=== PATIENT | male | born 1940 | race Caucasian/White ===

== ENCOUNTER → 2019-03-19 | Outpatient (CLI) | payer OTHER ==
[~2019-03-19] MED LIST: ANDROGEL2.5 GM TOP; ARIMIDEX1 MG PO; ASA81BEC PO; CALCIUM 500 +1 EAC1 PO; CELEXA 20 MG TA20 MG PO; FISH OIL 1,001000 M3 PO; GLUCOSAMINE CH1 EA10 PO; MAGNESIUM250 M1 PO; MULTIVITAMINS PO; NABUMETONE 500500 M2 PO; NEURONTIN 300M300 M2 PO; OCUVITE TABLET1 EAC1 PO; SAW PALMETTO160 MG PO; VITAMIN C1000 MG PO; ZESTRIL40 MG PO
== END ==
LOC: SJCVC 11:30
DX: I44.4 Left anterior fascicular block (principal); I21.9 Acute myocardial infarction, unspecified; R00.1 Bradycardia, unspecified; I10 Essential (primary) hypertension; E78.5 Hyperlipidemia, unspecified; D33.4 Benign neoplasm of spinal cord; Z79.899 Other long term (current) drug therapy; Z88.8 Allergy status to other drugs, medicaments and biological substances

== ENCOUNTER → 2019-04-04 | Outpatient (CLI) | payer OTHER | LOC: SJCVCIMAG 09:53 | DX: R94.31 Abnormal electrocardiogram [ECG] [EKG] (principal); I10 Essential (primary) hypertension; I44.4 Left anterior fascicular block; E78.5 Hyperlipidemia, unspecified ==

== ENCOUNTER → 2019-04-06 | Outpatient (CLI) | payer OTHER ==
[~2019-04-06] VITALS: Ht 185.4 cm; Wt 97.5 kg
--- NOTE | 2019-04-06 11:38 | P ---
[facility] [place] [address] PROCEDURE REPORT Name: CHA GRAY Room #: REG [facility] April.#: [id number] Admission: 04/06/19 Attend Phys: Dionisio Winslow Discharge: Date of : 38 Report #: [id number] THIS REPORT FOR: //name// cc: Richard Wray MD, Greg E. MD ~ THIS REPORT FOR: //name// CC: Dionisio Wray MD DATE OF SERVICE: 04/06/2019 PROCEDURE: Upper endoscopy with biopsies. HISTORY OF PRESENT ILLNESS: The patient began having intermittent periumbilical and midepigastric abdominal pain in January 2019, gradually became worse. Primary physician prescribed omeprazole 20 mg a day starting 03/21/2019. Symptoms did decrease. He has been off the medicine now for 2 weeks and he is starting to have symptoms. He does report some mild heartburn at time. Denies any dysphagia, no previous history of endoscopy. He has been on aspirin in the past, also had heme positive stool test recently. DESCRIPTION OF PROCEDURE: The risks and benefits of the procedure were explained to the patient, those risks including but not limited to bleeding, perforation and the risk of sedation. He understood these risks and gave informed consent. Sedation was given using propofol per anesthesia. Next, using a standard Olympus upper endoscope, the scope was placed in the patient's mouth and advanced under direct vision through the esophagus, stomach and into the second portion of the duodenum. The larynx was normal in appearance. The upper and mid esophagus was normal. In the distal esophagus, grade C erosive esophagitis was noted. No active bleeding, possible short segment of Mcwilliams's was also noted. Biopsies were obtained. Overall, the gastric mucosa was normal. The pylorus was normal and patent. The duodenal bulb, first and second portion were all normal. The scope was then withdrawn and the procedure terminated. The patient tolerated the procedure well. IMPRESSION: 1. Grade C erosive esophagitis. 2. 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 3. Otherwise, normal upper endoscopy. RECOMMENDATIONS: 1. Await biopsy results. 2. Would recommend long-term daily PPI therapy. 3. We will proceed with colonoscopy next today. [address] [address] PROCEDURE REPORT Name: CHA GRAY Room #: REG Antonio Tovar#: [id number] Admission: 04/06/19 Attend Phys: Dionisio Winslow Discharge: Date of : 38 Report #: [id number] Thank you for allowing me to participate in his care. <ELECTRONICALLY SIGNED> By: Dionisio Lauren MD 04/06/19 1138 [phone] Dionisio Lauren MD /nt
--- NOTE | 2019-04-06 11:38 | P ---
[facility] [place] [address] PROCEDURE REPORT Name: CHA GRAY Room #: REG [facility].#: [id number] Admission: 04/06/19 Attend Phys: Dionisio Winslow Discharge: Date of : 38 Report #: [id number] THIS REPORT FOR: //name// cc: Richard Wray MD, Greg E. MD ~ THIS REPORT FOR: //name// CC: Dionisio Wray MD DATE OF SERVICE: 04/06/2019 PROCEDURE PERFORMED: Colonoscopy with polypectomies. HISTORY OF PRESENT ILLNESS: The patient is an 79-year-old male who presents today for a 5-year followup screening colonoscopy, last colonoscopy, diverticulosis. He has a family history of colon cancer. DESCRIPTION OF PROCEDURE: The risks and benefits of the procedure were explained to the patient, those risks including but not limited to bleeding, perforation and the risk of sedation. He understood these risks and gave informed consent. Sedation was given using propofol per anesthesia. Next, a digital rectal exam was initially performed, which showed external hemorrhoids, otherwise normal. Next, using a standard Olympus colonoscope, the scope was placed in the patient's anus and advanced under direct vision to the cecum. The overall prep was good. In the cecum, there was a 5 mm sessile polyp. This was removed by snare cautery, otherwise normal. The ileocecal valve was normal. In the proximal ascending colon, a 3 mm sessile polyp was noted. This was removed by cold forceps. The transverse colon was normal. Multiple diverticula were noted in the descending and sigmoid colon, no evidence of inflammation, otherwise normal. The rectal mucosa was normal. On retroflexion, small nonbleeding internal hemorrhoids were noted. The scope was then withdrawn and the procedure terminated. The patient tolerated the procedure well. IMPRESSION: 1. Two small colonic polyps. 2. Left-sided diverticulosis. 3. Internal and external hemorrhoids. 4. Otherwise, normal colonoscopy. RECOMMENDATIONS: 1. Await biopsy results. 2. Consider repeat colonoscopy in 5 years; if adenomatous polyps. [address] [address] PROCEDURE REPORT Name: CHA GRAY [facility] #: [facility] [id number] Admission: 04/06/19 Attend Phys: Dionisio Winslow Discharge: Date of : 38 Report #: [id number] Thank you for allowing me to participate in his care. <ELECTRONICALLY SIGNED> By: Dionisio Lauren MD 04/06/19 1138 [phone] Dionisio Lauren MD /nt
--- NOTE | 2019-04-10 10:07 | PATH ---
[facility] [place] [address] PATHOLOGY RPT PROCEDURE Name: CHA GRAY Room #: REG Antonio April.#: [id number] Admission: 04/06/19 Date of : 38 Discharge: Report #: [id number] Path Case #: [id number] [facility] Accession Number: [id number] . 01 Material submitted: . PART A: esophagus - BIOPSY OF DISTAL ESOPHAGUS TO R/O ARCHER'S. Modifiers: distal PART B: cecum - POLYP AT CECUM PART C: colon - POLYP AT ASCENDING COLON. Modifiers: ascending . 01 Clinical history: . Pre-op diagnosis: Abdominal pain, heme positive stools, colon screening Post-op diagnosis: Grade C erosive esophagitis, diverticulosis, colon polyps R/O Archer's . 02 Diagnosis: A. Esophagus, distal, biopsy: - Hyperplastic squamous epithelium without significant inflammation. - Separate portion of gastric-type columnar epithelium with moderate chronic inflammation and no evidence of intestinal metaplasia. . B. Colon, cecum, biopsy: - Hyperplastic polyp with moderate chronic inflammation. . C. Colon, ascending, biopsy: - Adenomatous polyp, one. - Two fragments of colonic mucosa with no significant histopathologic diagnosis. . (EMILY:thea; 04/09/2019) MBR 04/09/2019 1142 Local . 02 Electronically signed: . Ryland oBwman MD, Pathologist NPI- [id number] . 01 Gross description: . A. The specimen is received in formalin, labeled "Cha Gray, biopsy of distal esophagus to R/O Archer's". Received are two segments of pale bermudez soft tissue ranging in size from 0.3 to 0.5 cm in maximum dimensions. The specimen is submitted entirely in cassette A1. . B. The specimen is received in formalin, labeled "Cha Tolin, polyp at cecum". Received are two segments of pale bermudez soft tissue ranging in size from 0.6 to 0.7 cm in maximum dimensions. The specimen is submitted entirely in cassette B1. [address] [address] PATHOLOGY RPT PROCEDURE Name: CHA GRAY Room #: REG CL La#: [id number] Admission: 04/06/19 Date of : 38 Discharge: Report #: [id number] Path Case #: [id number] . C. The specimen is received in formalin, labeled "Cha Tolin, polyp at ascending colon". Received are three segments of pale bermudez soft tissue ranging in size from 0.1 to 0.3 cm in maximum dimensions. The specimen is submitted entirely in cassette C1. (CAA; 04/06/2019) QAC/QAC 04/06/2019 1740 Local . 02 Pathologist provided ICD-10: K20.9, K63.5, D12.2, K52.9 . 02 CPT . 563596, [id number], 603845 Specimen Comment: A courtesy copy of this report has been sent to [phone], [phone] Specimen Comment: [id number] Specimen Comment: Report sent to and Specimen Comment: A duplicate report has been generated due to demographic updates. Performed at: 01 [facility] [address] [id number] MD Mark Ramires MD Phone: [phone] Performed at: 02 [facility] [address] [id number] MD Arvind Mcintyre MD Phone: [phone]
== END | disposition home or self-care (01) ==
LOC: GI 08:03
DX: K92.1 Melena (principal); D12.2 Benign neoplasm of ascending colon; K57.30 Diverticulosis of large intestine without perforation or abscess without bleeding; K64.8 Other hemorrhoids; K64.4 Residual hemorrhoidal skin tags; K22.10 Ulcer of esophagus without bleeding; K21.9 Gastro-esophageal reflux disease without esophagitis; I10 Essential (primary) hypertension; G47.30 Sleep apnea, unspecified; F32.9 Major depressive disorder, single episode, unspecified; Z98.890 Other specified postprocedural states; Z79.899 Other long term (current) drug therapy; Z85.820 Personal history of malignant melanoma of skin; Z85.828 Personal history of other malignant neoplasm of skin; Z96.611 Presence of right artificial shoulder joint; Z80.0 Family history of malignant neoplasm of digestive organs; Z96.612 Presence of left artificial shoulder joint; Z98.41 Cataract extraction status, right eye; Z98.42 Cataract extraction status, left eye; Z96.653 Presence of artificial knee joint, bilateral; Z88.8 Allergy status to other drugs, medicaments and biological substances; Z79.82 Long term (current) use of aspirin
CPT/HCPCS: 62110; 62900

== ENCOUNTER → 2020-04-09 | Outpatient (CLI) | payer OTHER | LOC: SJCVC 10:04 | PROVIDERS: ATTEND Internal Medicine | DX: R94.31 Abnormal electrocardiogram [ECG] [EKG] (principal); I44.7 Left bundle-branch block, unspecified; R00.1 Bradycardia, unspecified; I10 Essential (primary) hypertension; E78.5 Hyperlipidemia, unspecified; D33.4 Benign neoplasm of spinal cord; Z98.890 Other specified postprocedural states; Z88.8 Allergy status to other drugs, medicaments and biological substances; Z79.82 Long term (current) use of aspirin; Z79.899 Other long term (current) drug therapy; Z82.49 Family history of ischemic heart disease and other diseases of the circulatory system ==

== ENCOUNTER → 2020-05-01 | Outpatient (CLI) | payer OTHER | LOC: SJCVCIMAG 04-14 11:13 | PROVIDERS: ATTEND Internal Medicine | DX: I08.0 Rheumatic disorders of both mitral and aortic valves (principal); I10 Essential (primary) hypertension; R94.31 Abnormal electrocardiogram [ECG] [EKG]; R00.1 Bradycardia, unspecified ==

== ENCOUNTER → 2021-04-30 | Outpatient (CLI) | payer OTHER | LOC: SJCVC 15:22 | PROVIDERS: ATTEND Internal Medicine | DX: I44.7 Left bundle-branch block, unspecified (principal); I10 Essential (primary) hypertension; R00.1 Bradycardia, unspecified; E78.5 Hyperlipidemia, unspecified; D33.4 Benign neoplasm of spinal cord; I77.810 Thoracic aortic ectasia; Z72.89 Other problems related to lifestyle; Z79.82 Long term (current) use of aspirin; Z79.899 Other long term (current) drug therapy; Z88.8 Allergy status to other drugs, medicaments and biological substances ==